=== PATIENT | female | born 1990 | race Caucasian/White ===

== ENCOUNTER → 2016-07-18 | Outpatient (CLI) | payer OTHER ==
--- NOTE | 2016-07-19 02:57 | REP ---
Clinical: Anatomical evaluation. Comparison: 06/17/2016 . Findings: Examination demonstrates a single live intrauterine in cephalic presentation. motion is identified by technologist. Placenta is noted anteriorly and grade zero without evidence for placenta previa or abruption. Amniotic fluid volume is normal. Cervix measures 3.9 cm in length and appears closed. No evidence for nuchal cord. Gestational age by LMP 24 weeks 4 days with GREG 11/03/2016 . Gestational age by current measurements 25 weeks 0 days with GREG 10/31/2016 . FHR equals 138 beats per minute. Estimated weight 765 grams ( 57th percentile). Anatomical assessment demonstrates normal structures including cranium, choroid plexus, cavum, cerebellum/posterior fossa, facial features, lungs, four-chamber heart/ventricular outflow tracts, diaphragm, stomach, cord insertion/three-vessel cord, kidneys/bladder, spine, and extremities. Impression: Single live intrauterine in cephalic presentation demonstrating appropriate interval growth. Anatomical assessment is complete and normal. Signed by Shun Kidd MD 07/19/2016 02:49 A
== END | disposition home or self-care (01) ==
LOC: M RAD 13:49
PROVIDERS: ATTEND Obstetrics & Gynecology
DX: Z34.82 Encounter for supervision of other normal pregnancy, second trimester (principal); Z36 Encounter for antenatal screening of mother; Z3A.25 25 weeks gestation of pregnancy

== ENCOUNTER → 2016-09-08 | Outpatient (CLI) | payer OTHER ==
[2016-09-08 11:16] LABS: MEAN CORPUSCULAR HEMOGLOBIN 33.1 pg (27.0-33.0); MEAN CORPUSCULAR HGB CONC 35.8 g/dl (32.0-36.5); MEAN CORPUSCULAR VOLUME 92.4 fl (80.0-96.0); RED CELL DISTRIBUTION WIDTH 13.3 % (11.5-14.5)
[2016-09-09 15:14] LABS: WHITE BLOOD COUNT 20.3 K/mm3 (4.0-10.0)
== END ==
LOC: M LAB 09:50
PROVIDERS: ATTEND Obstetrics & Gynecology
DX: Z34.82 Encounter for supervision of other normal pregnancy, second trimester (principal); Z36 Encounter for antenatal screening of mother; Z3A.00 Weeks of gestation of pregnancy not specified

== ENCOUNTER → 2016-09-22 | Outpatient (REF) | payer OTHER | LOC: M LAB REF 13:09 | PROVIDERS: ATTEND Obstetrics & Gynecology | DX: Z34.83 Encounter for supervision of other normal pregnancy, third trimester (principal); Z36 Encounter for antenatal screening of mother; Z3A.00 Weeks of gestation of pregnancy not specified ==

== ENCOUNTER 2016-10-27 23:01 | Inpatient (IN) | payer OTHER ==
[2016-10-27] MEDS ORDERED: OXYTOCIN DRIP 30 UNITS in APPROPRIATE DILUENT 1 EA IV SCH (23:45)
[2016-10-27] MEDS ORDERED: LR 1,000 ML IV SCH (23:45)
[2016-10-28] VITALS (38 sets, daily range): BP systolic 91–134; BP diastolic 50–95
--- NOTE | 2016-10-28 00:11 | HPEPDOC ---
Obstetrical History & Physical General Date of Admission October 27, 2016 at 23:35 Primary Care Physician: KATIE CHOE CNM History of Present Illness Rebeca is a 26-year-old female who is a at 39 weeks gestation with an GREG of 11/03/2016 based off of her first trimester ultrasound. She initiated care in her first trimester at [facility]. Her has been uncomplicated. She does have a history of preeclampsia with her first with eclampsia postdelivery and also history of a delivery at 32 weeks gestation. The patient was offered Shona injections weekly due to her history of delivery but patient declined. She presents to labor and delivery tonight with complaints of leaking of fluid which occurred at 10 PM. She reports the fluid is clear. Denies vaginal bleeding and reports active movement. Chief Complaint: Rupture of membranes Information Provided By: Patient Age: 26 : 4 Term: 2 Pre-term: 1 Abortions: 0 Livin Care Care: Good Care Number of Visits: 10 Dating Final EDC: November 03, 2016 Final EDC by: LMP EGA at Admission: 39.0 Antepartum Course Height (inches): 61 Pre- weight (lbs.): 112 Admission Weight (lbs.): 124 Change in Weight (lbs.): 12 Past Medical History Past Obstetrical History #1: Past Obstetrical History: Multigravida Type of Delivery: Spontaneous Vaginal Del. (June 2014 at 40 weeks gestation) Sex of : Male (wing 7 pounds) Complications: Yes (preeclampsia followed by eclampsia after delivery) Past Obstetrical History #2: Gestation: 32 Type of Delivery: Spontaneous Vaginal Del. Sex of : Male (weighing 5 lbs. 2 oz.) Complications: Yes ( delivery) Past Obstetrical History #3: Gestation: 40 Type of Delivery: Spontaneous Vaginal Del. 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 Surgical History: Gallbladder, Hernia repair Family History Significant Family History: Asthma, Cancer (colon), Heart disease, Hypertension , Other (IBS) Social History Marital Status: Single Family situation: Spouse/partner home Psychosocial History: No pertinent psych hx * Smoker: current smoker Alcohol: Denies Drugs: denies Abuse Violence Screening Have you been hit/kicked/slapp: No Have you been sexually assault: No Imunizations Tdap status: current Allergies Coded Allergies: Chlorpheniramine (Verified Allergy, Intermediate, HIVES, 09/24/12) Codeine (Verified Allergy, Intermediate, HIVES, 09/24/12) Dextromethorphan (Verified Allergy, Unknown, HIVES, 09/24/12) Guaifenesin (Verified Allergy, Unknown, HIVES, 09/24/12) Physical Examination Physical Examination GENERAL: Alert and oriented times three. BREAST: . ABDOMEN: Gravid and non-tender to touch. FETUS: Is vertex (VTX) by sterile vaginal examination (SVE), fetus is vertex ( VTX) by Herber. HEART RATE: Regular rate and rhythm. LUNGS: Clear to auscultation (CTA). EXTREMITIES: No edema. Other physical findings Patient is grossly ruptured. Moderate amount of clear fluid leaking from the vagina. Positive nitrazine. Laboratory Data 24H LABS Laboratory Tests 2 10/27/16 23:42: Serology Scanned Report Hepatitis B Testing Urine Culture: No Growth Pertinent Laboratoy Data Blood Type: A+ RBC Antibody Screen: Negative HIV: Negative Hepatitis B: Negative Rapid Plasma Reagin: Nonreactive Rubella: Immune Chlamydia/Gonorrhea: Negative Group B Streptococcus: Negative Quad Screen Test: Declined Glucose Tolerance Test: 111 Anatomy Ultrasound Ultrasound Date: Jul 18, 2016 Normal Anatomy: Yes Placenta Previa: No Vaginal Examination Dilation: 4 cm Effacement: 75% Station: -2 Cervical Consistency: Soft Cervical Position: Posterior Presentation: Cephalic presentation Position: Vertex (occiput) Assessment Heart Rate (FHR): 115 Variability: Moderate Accelerations: Positive Decelerations: None Tocometer Contractions: Yes Frequency: irregular Multi-drug resistant Organism: No history of MDRO Assessment/Plan Assessment IUP at 39 weeks gestation Spontaneous rupture at term, grossly ruptured Category 1 heart rate tracing Plan Admit to labor and delivery. Start IV per protocol. Labs per protocol. Out of bed as tolerated. Reviewed expectant management versus Pitocin augmentation with patient due to being ruptured. Reviewed risks/benefits of each. Patient desires to have Pitocin augmentation. She is considering an epidural. Anticipate cervical change and spontaneous vaginal delivery. KATIE CHOE CNM October 28, 2016 00:11
[2016-10-28 00:32] LABS: MEAN CORPUSCULAR HEMOGLOBIN 31.9 pg (27.0-33.0); MEAN CORPUSCULAR HGB CONC 35.4 g/dl (32.0-36.5); MEAN CORPUSCULAR VOLUME 89.9 fl (80.0-96.0); RED CELL DISTRIBUTION WIDTH 13.7 % (11.5-14.5); WHITE BLOOD COUNT 16.3 K/mm3 (4.0-10.0)
[2016-10-28] MEDS ORDERED: FENTANYL 2MCG/ML ROPIVACAINE 0.2% IN 0.9% NACL 200ML IVBAG As Ordered ONE (04:16)
[2016-10-28] MEDS ORDERED: EPIDURAL COMMENT XX SCH (04:52)
[2016-10-28] MEDS ORDERED: LACTATED RINGER'S 1000 ML IV PRN (04:52)
[2016-10-28] MEDS ORDERED: ePHEDrine SULFATE 25 MG/5 ML(5MG/ML) SYRINGE IV PRN (04:52)
[2016-10-28] MEDS ORDERED: ONDANSETRON 4MG/2ML VIAL (J2405) IV PRN (04:52)
[2016-10-28] MEDS ORDERED: diphenhydrAMINE INJ 50MG/ML VIAL (J1200) IV PRN (04:52)
[2016-10-28] MEDS ORDERED: FENTANYL/ROPIVACAINE/NACL BAG 200 ML EPIDURAL SCH (04:52)
[2016-10-28] MEDS ORDERED: REFRIGERATOR IV KEYS XX PRN (04:52)
[2016-10-28] MEDS ORDERED: NALOXONE INJ 0.4 MG/1 ML VIAL (J2310) IV PRN (04:52)
[2016-10-28] MEDS ORDERED: EPIDURAL/PCA KEYS XX PRN (04:52)
--- NOTE | 2016-10-28 07:26 | IPNPDOC ---
Date Seen The patient was seen on 10/28/16 at 0700. Progress Note SUBJECTIVE: Patient reports she is comfortable after receiving epidural. No complaints. OBJECTIVE: FHR: 120, moderate variability, positive accelerations, no decelerations. Contractions every 2 to 3 minutes. Pitocin at 10 mu/min. VITAL SIGNS: Please see below. ASSESSMENT: IUP @ 39.1 weeks gestation, SROM, Category I FHR tracing PLAN: Continue Pitocin augmentation. Anticipate cervical change and . VS, I&O, 24H, Fishbone Vital Signs/I&O Vital Signs Date Time Temp Pulse Resp B/P (MAP) Pulse Ox O2 Delivery O2 Flow Rate FiO2 10/28/16 04:48 74 117/89 (98) 10/28/16 04:47 99.0 I&O- Last 24 Hours up to 6 AM 10/28/16 05:59 Intake Total 1000 ml Balance 1000 ml Laboratory Data 24H LABS Laboratory Tests 2 10/27/16 23:42: Serology Scanned Report Hepatitis B Testing 10/28/16 00:24: CBC/BMP Laboratory Tests 10/28/16 00:24 Red Blood Count 4.05, Mean Corpuscular Volume 89.9, Mean Corpuscular Hemoglobin 31.9, Mean Corpuscular Hemoglobin Concent 35.4, Red Cell Distribution Width 13.7 KATIE CHOE CNM October 28, 2016 07:26
[2016-10-28] MEDS ORDERED: OXYTOCIN DRIP 30 UNITS in APPROPRIATE DILUENT 1 EA IV SCH (14:17)
[2016-10-28] MEDS ORDERED: ACETAMINOPHEN 500 MG TAB PO PRN (14:30)
[2016-10-28] MEDS ORDERED: DIBUCAINE 1% OINTMENT 30GM TOP PRN (14:30)
[2016-10-28] MEDS ORDERED: METHYLERGONOVINE MALEATE 0.2 MG TAB PO PRN (14:30)
[2016-10-28] MEDS ORDERED: DOCUSATE SODIUM 100 MG CAP PO PRN (14:30)
[2016-10-28] MEDS ORDERED: RHOGAM 300 MCG (1500 IU) INJ (J2790) IM SCH (14:30)
[2016-10-28] MEDS ORDERED: MEASLES,MUMPS,RUBELLA VACCINE INJ (MMR-II) (90707) SC SCH (14:30)
--- NOTE | 2016-10-28 14:43 | DNPDOC ---
[facility] Delivery Note Delivery Note Rebeca is a 26-year-old female now G 4 P 3104 at 39.1 weeks' gestation who presented to labor and delivery with spontaneous rupture of membranes. She received Pitocin augmentation and an epidural for pain management. She progressed to fully dilated at 1238. Patient pushed to a spontaneous vaginal delivery at 1251 to a living male in the OA position with restitution to R OT. Nuchal cord 3 tight. Shoulders delivered with ease and the corpus immediately followed. Baby placed on maternal abdomen active and crying with stimulation. Cord clamped 2 and cut by father of the baby after pulsation ceased. Spontaneous delivery of intact placenta with a three-vessel cord by Klein mechanism at 1256. Uterine hemostasis achieved by rapid infusion of IV Pitocin and uterine fundal massage. Perineum and vagina inspected and found to intact. EBL 400. Infant's 8/9. Weight 7 lbs. 1 oz, 3196 g. Mom is bottle feeding . Both are stable.. KATIE CHOE CNM October 28, 2016 14:43
[2016-10-28] MEDS: IBUPROFEN 800 MG TAB PO PRN (18:49)
[2016-10-29 05:54] VITALS: BP 118/65
[2016-10-29] MEDS: IBUPROFEN 800 MG TAB PO PRN ×2 (06:53→17:16)
[2016-10-29] MEDS ORDERED: PNEUMOCOCCAL VACCINE 0.5ML SYRINGE(90732) PNEUMOVAX 23 IM SCH (09:00)
[2016-10-29] MEDS ORDERED: PRENATAL VITAMIN TAB PO SCH (09:00)
[2016-10-29] MEDS ORDERED: MOTR200T44 PO (16:31)
[2016-10-29] MEDS ORDERED: TYLE500T78 PO (16:31)
[2016-10-29] MEDS ORDERED: COLA100C3 PO (16:33)
[2016-10-29 17:40] VITALS: BP 137/94
[2016-10-29 18:00] VITALS: BP 123/87
== END 2016-10-29 20:59 | disposition home or self-care (01) | DRG 560 ==
LOC: M LDO 23:01 → M LDI 23:35 → M OBS 10-28 15:20
PROVIDERS: ADMIT Advanced Practice Midwife; ATTEND Advanced Practice Midwife
PROC: 10E0XZZ Delivery of Products of Conception, External Approach (ICD-10-PCS; principal; 2016-10-28)
DX: O69.2XX0 Labor and delivery complicated by other cord entanglement, with compression, not applicable or unspecified (principal); F17.210 Nicotine dependence, cigarettes, uncomplicated; Z37.0 Single live birth; Z3A.39 39 weeks gestation of pregnancy; O99.334 Smoking (tobacco) complicating childbirth

== ENCOUNTER 2016-11-30 09:30 | Emergency (ER) | payer OTHER ==
[~2016-11-30] VITALS: Ht 152.4 cm; Wt 53.1 kg
[~2016-11-30 09:30] MED LIST: COLA100C3 PO; MOTR200T44 PO; TYLE500T78 PO
--- NOTE | 2016-11-30 11:02 | REP ---
Left shoulder series: Three views. History: Left rib pain and shoulder pain. Findings: The glenohumeral and acromioclavicular joints are normally aligned on the left side. No shoulder fracture is seen. No subluxation is seen. Incidental note is made of transverse fracture of the posterolateral segments of the left 6th and 7th ribs. Impression: Left 6th and 7th posterolateral rib fractures. No shoulder fracture or subluxation seen. Signed by Timur Hinojosa MD 11/30/2016 01:34 P
[2016-11-30] MEDS ORDERED: HYDR-3713 PO (11:05)
--- NOTE | 2016-11-30 11:18 | REP ---
Left rib series: Four views including PA chest. History: Left rib pain. Comparison chest x-ray May 17, 2014. Findings: The lungs are exposed at a somewhat lesser inspiratory level. They are clear however. There is no evidence of pneumothorax or hydrothorax. Mediastinum is not widened. Heart size is normal. Multiple views of the left rib cage demonstrate left posterolateral rib fractures involving the 6th and 7th left ribs. The left posterolateral 7th rib fracture is mildly displaced. The left 6th rib fracture is not displaced. Impression: Left posterolateral 6th and 7th rib fractures. No complication is identified. Signed by Timur Hinojosa MD 11/30/2016 01:34 P
[2016-11-30 11:48] VITALS: BP 128/86
== END 2016-11-30 11:47 | disposition home or self-care (01) ==
LOC: M ED 10:19
DX: S22.42XA Multiple fractures of ribs, left side, initial encounter for closed fracture (principal); S40.012A Contusion of left shoulder, initial encounter; W22.09XA Striking against other stationary object, initial encounter; Y92.009 Unspecified place in unspecified non-institutional (private) residence as the place of occurrence of the external cause; Y93.89 Activity, other specified; Y99.8 Other external cause status; F17.210 Nicotine dependence, cigarettes, uncomplicated; Z88.8 Allergy status to other drugs, medicaments and biological substances; Z88.5 Allergy status to narcotic agent

== ENCOUNTER → 2017-05-21 | Outpatient (REF) | payer OTHER ==
[~2017-05-21] MED LIST changes: -COLA100C3 PO; +COLA100C5 PO; +HYDR-3713 PO
== END ==
LOC: M LAB REF 10:49
PROVIDERS: ATTEND Physician Assistant Medical
DX: J11.1 Influenza due to unidentified influenza virus with other respiratory manifestations (principal)

== ENCOUNTER → 2017-12-08 | Outpatient (CLI) | payer OTHER | LOC: M RAD 13:21 | DX: S69.92XA Unspecified injury of left wrist, hand and finger(s), initial encounter (principal); X58.XXXA Exposure to other specified factors, initial encounter; Y92.9 Unspecified place or not applicable | CPT/HCPCS: 73110 ==

== ENCOUNTER 2017-12-30 16:08 | Emergency (ER) | payer OTHER ==
[2017-12-30] MEDS: NORCO, ANEXSIA 5/325MG TABLET (HYDROcodone/ACETAMINOPHEN) PO (17:30)
== END 2017-12-30 17:47 | disposition home or self-care (01) ==
LOC: M ED 16:08
DX: S93.492A Sprain of other ligament of left ankle, initial encounter (principal); W18.42XA Slipping, tripping and stumbling without falling due to stepping into hole or opening, initial encounter; Y92.096 Garden or yard of other non-institutional residence as the place of occurrence of the external cause; F17.200 Nicotine dependence, unspecified, uncomplicated
CPT/HCPCS: 73610

== ENCOUNTER → 2018-10-01 | Outpatient (REF) | payer OTHER ==
[2018-10-01 13:34] LABS: APPEARANCE, URINE HAZY (CLEAR); BACTERIA, URINE AUTO 1+ (NEGATIVE); BILIRUBIN, URINE AUTO NEGATIVE (NEGATIVE); BLOOD, URINE BLOOD 1+ (NEGATIVE); COLOR, URINE YELLOW (YELLOW); GLUCOSE, URINE (UA) AUTO NEGATIVE (NEGATIVE); KETONE, URINE AUTO NEGATIVE (NEGATIVE); LEUKOCYTE ESTERASE, URINE AUTO 2+ (NEGATIVE); MUCUS, URINE SMALL (NEGATIVE); NITRITE, URINE AUTO NEGATIVE (NEGATIVE); PROTEIN, URINE AUTO NEGATIVE (NEGATIVE); RBC, URINE AUTO 4 /HPF (0-3); SPECIFIC GRAVITY URINE AUTO 1.019 (1.002-1.035); SQUAMOUS EPITHELIAL CELL UR AU 17 /HPF (0-6); UROBILINOGEN, URINE AUTO 0.2 mg/dL (0.0-2.0); WBC, URINE AUTO 5 /HPF (0-3)
== END ==
LOC: M LAB REF 13:02
PROVIDERS: ATTEND Physician Assistant Medical
DX: N39.0 Urinary tract infection, site not specified (principal)

== ENCOUNTER 2018-12-30 20:03 | Emergency (ER) | payer OTHER ==
[~2018-12-30] VITALS: Ht 154.9 cm; Wt 50.9 kg
[2018-12-30 20:04] VITALS: BP 142/91
--- NOTE | 2018-12-31 04:02 | REP ---
Clinical: Trauma/injury . Technique: AP, lateral, bilateral oblique views right ankle . Findings: No acute fracture or dislocation. Skeletal structures and joint spaces are intact and normal. Ankle mortise appears stable. No subcutaneous emphysema or radiodense foreign body. Impression: Normal right ankle radiograph series. Electronically Signed by Shun Kidd MD 12/31/2018 03:54 A
--- NOTE | 2018-12-31 04:03 | REP ---
Clinical: Trauma. Technique: AP, lateral, bilateral oblique views right foot . Findings: The osseous structures and joint spaces are intact and normal. There is no evidence for acute fracture or dislocation. Surrounding soft tissues are unremarkable. No subcutaneous emphysema or radiodense foreign body. Impression: Normal Right foot series . No acute fracture or dislocation. Electronically Signed by Shun Kidd MD 12/31/2018 03:54 A
== END 2018-12-30 20:55 | disposition home or self-care (01) ==
LOC: M ED 20:03
DX: S93.601A Unspecified sprain of right foot, initial encounter (principal); X58.XXXA Exposure to other specified factors, initial encounter; Y92.099 Unspecified place in other non-institutional residence as the place of occurrence of the external cause; Y93.B9 Activity, other involving muscle strengthening exercises; Y99.9 Unspecified external cause status; R56.9 Unspecified convulsions; Z72.0 Tobacco use; Z88.5 Allergy status to narcotic agent; Z88.8 Allergy status to other drugs, medicaments and biological substances

== ENCOUNTER 2019-02-09 18:15 | Emergency (ER) | payer OTHER ==
[~2019-02-09] VITALS: Ht 154.9 cm; Wt 61.1 kg
[2019-02-09] MEDS ORDERED: METHOCARBAMOL 1,000 MG/10 ML VIAL (J2800) IV ONE (19:45)
[2019-02-09] MEDS ORDERED: KETOROLAC 30 MG/ML VIAL (J1885) IV ONE (19:45)
[2019-02-09] MEDS ORDERED: NAPR-837 PO (21:20)
[2019-02-09] MEDS ORDERED: ROBA750T4 PO (21:20)
[2019-02-09 21:37] VITALS: BP 109/72
== END 2019-02-09 21:39 | disposition home or self-care (01) ==
LOC: M ED 18:15
DX: M54.5 Low back pain (principal); Z72.0 Tobacco use; Z88.5 Allergy status to narcotic agent; Z88.8 Allergy status to other drugs, medicaments and biological substances
CPT/HCPCS: 96374; 96375; 99284; J1885; J2800

== ENCOUNTER → 2019-02-26 | Outpatient (REF) | payer OTHER ==
[~2019-02-26] MED LIST changes: +NAPR-837 PO; +ROBA750T4 PO
== END ==
LOC: M SFHCPLAZ 17:44
PROVIDERS: ATTEND Nurse Practitioner Family
DX: R35.0 Frequency of micturition (principal); N30.00 Acute cystitis without hematuria

== ENCOUNTER 2019-09-23 11:28 | Emergency (ER) | payer OTHER ==
[~2019-09-23] VITALS: Ht 154.9 cm; Wt 57.7 kg
[2019-09-23 11:28] VITALS: BP 130/89
[2019-09-23] MEDS ORDERED: TYLENOL (11:34)
--- NOTE | 2019-09-23 13:06 | REP ---
RIGHT FOOT, FOUR VIEWS: There is no evidence of an acute fracture, dislocation or intrinsic bone disease. IMPRESSION: No fracture or dislocation. Electronically Signed by Syed Mcfarland MD 09/23/2019 03:19 P
== END 2019-09-23 13:24 | disposition home or self-care (01) ==
LOC: M ED 11:28
DX: S93.601A Unspecified sprain of right foot, initial encounter (principal); W19.XXXA Unspecified fall, initial encounter; Y92.9 Unspecified place or not applicable; Y93.9 Activity, unspecified; Y99.9 Unspecified external cause status; R56.9 Unspecified convulsions; M54.9 Dorsalgia, unspecified; F17.200 Nicotine dependence, unspecified, uncomplicated; Z88.5 Allergy status to narcotic agent; Z88.8 Allergy status to other drugs, medicaments and biological substances

== ENCOUNTER 2020-06-20 22:07 | Emergency (ER) | payer OTHER, MEDICAID ==
[~2020-06-20] VITALS: Ht 154.9 cm; Wt 50.0 kg
[2020-06-20 22:07] VITALS: BP 116/73
[~2020-06-20 22:07] MED LIST changes: +TYLENOL
== END 2020-06-20 22:59 | disposition left against medical advice (07) ==
LOC: M ED 22:07
DX: Z53.29 Procedure and treatment not carried out because of patient's decision for other reasons (principal)

== ENCOUNTER → 2021-02-18 | Outpatient (REF) | payer OTHER, MEDICAID ==
[2021-02-18 18:20] LABS: HEMATOCRIT 43.6 % (36.0-47.0); HEMOGLOBIN 14.8 g/dl (12.0-15.5); MEAN CORPUSCULAR HGB CONC 33.9 g/dl (32.0-36.5); MEAN CORPUSCULAR VOLUME 94.2 fl (80.0-96.0); RED BLOOD COUNT 4.63 10^6/uL (4.00-5.40)
[2021-02-18 19:38] LABS: HCG, SERUM QUANTITATIVE 1214 MIU/ML; HEPATITIS B SURFACE ANTIGEN NEGATIVE (NEGATIVE); HEPATITIS C VIRUS ABY INDEX < 0.0 INDEX (<0.8); HIV 1&2 SCREEN CENTAUR NEGATIVE (NEGATIVE)
== END ==
LOC: M LAB REF 17:03
PROVIDERS: ATTEND Obstetrics & Gynecology
DX: O36.80X0 Pregnancy with inconclusive fetal viability, not applicable or unspecified (principal); Z32.01 Encounter for pregnancy test, result positive

== ENCOUNTER → 2021-03-23 | Outpatient (REF) | payer OTHER, MEDICAID ==
[2021-03-23 11:52] LABS: HEMATOCRIT 40.7 % (36.0-47.0); HEMOGLOBIN 14.2 g/dl (12.0-15.5); MEAN CORPUSCULAR HEMOGLOBIN 31.1 pg (27.0-33.0); MEAN CORPUSCULAR HGB CONC 34.9 g/dl (32.0-36.5); MEAN CORPUSCULAR VOLUME 89.1 fl (80.0-96.0); PLATELET COUNT, AUTOMATED 162 10^3/uL (150-450); RED BLOOD COUNT 4.57 10^6/uL (4.00-5.40); WHITE BLOOD COUNT 9.9 10^3/uL (4.0-10.0)
== END ==
LOC: M LAB REF 11:21
PROVIDERS: ATTEND Obstetrics & Gynecology
DX: Z34.01 Encounter for supervision of normal first pregnancy, first trimester (principal)

== ENCOUNTER → 2021-05-25 | Outpatient (REF) | payer OTHER ==
[~2021-05-25] MED LIST changes: +ACET-907 PO; +CEPH500C PO; +CIPR-250 PO; +MACR100C43 PO; +PERCOCET PO; +PRENTAB53 PO; +ZOFR4TAB16 PO
== END ==
LOC: M LAB REF 16:34
PROVIDERS: ATTEND Advanced Practice Midwife
DX: R30.0 Dysuria (principal)

== ENCOUNTER 2021-06-12 13:33 | Outpatient (CLI) | payer OTHER ==
[~2021-06-12] VITALS: Ht 154.9 cm; Wt 56.8 kg
[~2021-06-12 13:33] MED LIST changes: -ACET-907 PO; -CEPH500C PO; -CIPR-250 PO; -MACR100C43 PO; -PERCOCET PO; -PRENTAB53 PO; -ZOFR4TAB16 PO
[2021-06-12] MEDS ORDERED: LACTATED RINGER'S 1000 ML IV STA (13:42)
[2021-06-12 14:02] VITALS: BP 107/67
[2021-06-12] MEDS ORDERED: ACETAMINOPHEN 500 MG TAB PO PRN (14:10)
[2021-06-12] MEDS ORDERED: ONDANSETRON 4MG/2ML VIAL IV SCH (14:30)
[2021-06-12 14:43] LABS: HEMATOCRIT 37.1 % (36.0-47.0); HEMOGLOBIN 13.4 g/dl (12.0-15.5); MEAN CORPUSCULAR HEMOGLOBIN 32.1 pg (27.0-33.0); MEAN CORPUSCULAR HGB CONC 36.1 g/dl (32.0-36.5); PLATELET COUNT, AUTOMATED 224 10^3/uL (150-450); RED BLOOD COUNT 4.17 10^6/uL (4.00-5.40); WHITE BLOOD COUNT 20.4 10^3/uL (4.0-10.0)
[2021-06-12] MEDS ORDERED: cefTRIAXone SOD 2 GM in D5W MINI-BAG PLUS 50 ML IV ONE (15:00)
[2021-06-12 15:07] LABS: ALBUMIN 2.8 GM/DL (3.2-5.2); ALT/SGPT 92 U/L (12-78); BILIRUBIN,TOTAL 0.8 MG/DL (0.2-1.0); BLOOD UREA NITROGEN 3 MG/DL (7-18); CALCIUM LEVEL 9.2 MG/DL (8.5-10.1); CARBON DIOXIDE LEVEL 26 MEQ/L (21-32); CHLORIDE LEVEL 97 MEQ/L (98-107); CREATININE FOR GFR 0.38 MG/DL (0.55-1.30); GLOMERULAR FILTRATION RATE > 60.0 (>60); GLUCOSE, FASTING 90 MG/DL (70-100); SODIUM LEVEL 134 MEQ/L (136-145); TOTAL PROTEIN 7.4 GM/DL (6.4-8.2)
[2021-06-12] MEDS ORDERED: ACET-907 PO (15:17)
[2021-06-12] MEDS ORDERED: PRENTAB53 PO (15:17)
[2021-06-12] MEDS ORDERED: CIPR-250 PO (15:17)
[2021-06-12] MEDS ORDERED: ZOFR4TAB16 PO (15:17)
[2021-06-12] MEDS ORDERED: HOME MED LIST COMPLETE! XX SCH (15:20)
[2021-06-12] MEDS: MORPHINE 4 MG/ML 1ML VIAL/SYRINGE (J2270) IV PRN ×3 (15:41→21:53)
[2021-06-12 15:46] LABS: APPEARANCE, URINE CLOUDY (CLEAR); BACTERIA, URINE AUTO 1+ (NEGATIVE); BILIRUBIN, URINE AUTO 1+ (NEGATIVE); BLOOD, URINE BLOOD 1+ (NEGATIVE); COLOR, URINE AMBER (YELLOW); GLUCOSE, URINE (UA) AUTO NEGATIVE (NEGATIVE); KETONE, URINE AUTO 1+ mg/dL (NEGATIVE); LEUKOCYTE ESTERASE, URINE AUTO 3+ (NEGATIVE); MUCUS, URINE SMALL (NEGATIVE); NITRITE, URINE AUTO POSITIVE (NEGATIVE); PROTEIN, URINE AUTO 2+ mg/dL (NEGATIVE); RBC, URINE AUTO 5 /HPF (0-3); SPECIFIC GRAVITY URINE AUTO 1.013 (1.002-1.035); SQUAMOUS EPITHELIAL CELL UR AU 1 /HPF (0-6); WBC, URINE AUTO TNTC /HPF (0-3)
--- NOTE | 2021-06-12 15:47 | REP ---
INDICATION: right flank pain COMPARISON: None TECHNIQUE: Real time newman scale ultrasound examination using curved array transducer. FINDINGS: Right kidney measures 10.9 x 7.0 x 5.0 cm and demonstrates moderate grade 3 hydroureteronephrosis without obvious nephrolithiasis, cystic or renal mass lesion. Left kidney measures 11.7 x 5.0 x 4.1 cm without hydronephrosis, nephrolithiasis, cystic or renal mass lesion. Bladder is collapsed. IMPRESSION: Moderate grade 3 right hydronephrosis/proximal hydroureter. <Electronically signed by Shun Kidd > 06/12/21 [id number]
[2021-06-12 16:32] VITALS: BP 112/61
[2021-06-12] MEDS: LR 1,000 ML IV SCH ×2 (17:50→22:06)
[2021-06-12 19:36] VITALS: BP 99/63
[2021-06-12 19:40] VITALS: BP 102/58
--- NOTE | 2021-06-12 19:51 | IPNPDOC ---
Obstetrical Progress Note Date of Service Jun 12, 2021 Subjective 30yo at 21+2 weeks gestation. Presents with 3-day history of right flank pain and fever at home, 101.3 Fahrenheit. Recently treated for UTI, but did not complete course of antibiotic. She is having difficulty tolerating p.o. Symptoms have become worse over the last 24-hours. She has only treated herself with Tylenol for pain. Review of systems notable for intermittent xochitl sea vomiting. She denies any chest pain or shortness of breath. She denies any uterine contractions, loss of fluid, vaginal bleeding. She feels movement. PMH: scoliosis SH: lap len, hernia repair OB: x 4; 1 IOL for pre-e Sochx: smoker course: Receives care at [facility] Normotensive afebrile normal heart rate General: Alert and oriented but appears uncomfortable Heart: Regular rate and rhythm Lungs: Clear to auscultation, nonlabored breathing. Extremities: Nontender nonedematous FHR: 150 to 160 bpm, moderate variability [place]: No contractions A/P: 30-year-old at 21+2 weeks gestation with suspected right-sided pyelonephritis, possible hydronephrosis -Right renal ultrasound -IV fluid hydration -IV antibiotics, Rocephin 2 g IV repeat in 24-hours -IV morphine for pain control; transition to PO over the course of her stay -IV antiemetics for nausea control -OBS status for now. Angelo Garrison DO Objective Vital Signs Date Time Temp Pulse Resp B/P (MAP) Pulse Ox O2 Delivery O2 Flow Rate FiO2 06/12/21 18:55 16 06/12/21 16:32 98.7 91 112/61 (78) 98 Room Air ALLISON GARRISON DO Jun 12, 2021 19:51
[2021-06-12] MEDS: ONDANSETRON 4MG/2ML VIAL IV PRN (21:51)
[2021-06-12 23:42] VITALS: BP 109/56
[2021-06-13] MEDS: MORPHINE 4 MG/ML 1ML VIAL/SYRINGE (J2270) IV PRN ×2 (01:37→04:36)
[2021-06-13] MEDS: LR 1,000 ML IV SCH ×2 (06:00→09:45)
[2021-06-13] MEDS: ONDANSETRON 4MG/2ML VIAL IV PRN (07:32)
[2021-06-13] MEDS: PERCOCET 5MG/325MG TAB PO PRN ×2 (08:38→17:07)
[2021-06-13 08:50] VITALS: BP 91/52
[2021-06-13 08:51] VITALS: BP 91/53
[2021-06-13 09:48] VITALS: BP 106/56
[2021-06-13 12:16] VITALS: BP 94/51
[2021-06-13] MEDS ORDERED: MACR100C43 PO (13:35)
[2021-06-13] MEDS ORDERED: PERCOCET PO (13:35)
--- NOTE | 2021-06-13 13:35 | IPNPDOC ---
Obstetrical Progress Note Date of Service Jun 13, 2021 Subjective Patient feeling improved today after receiving IV hydration, pain control, and IV antibiotic. She is now eating and tolerating PO without n/v. Labs and imaging yesterday c/w pyelonephritis. No e/o nephrolithiasis. No VB/LOF/uctx. +FM. FHR doptones have been consistently wnl. Recently switched IV pain control to PO Percocet. Vital Signs Date Time Temp Pulse Resp B/P (MAP) Pulse Ox O2 Delivery O2 Flow Rate FiO2 06/13/21 12:16 96.4 62 20 94/51 (65) 97 Room Air 06/13/21 09:48 75 20 106/56 (73) 06/13/21 09:20 16 06/13/21 08:51 65 91/53 (66) 06/13/21 08:50 98.0 64 16 91/52 (65) 98 Room Air 06/13/21 08:38 16 06/13/21 04:47 18 06/13/21 04:36 18 06/13/21 01:49 18 06/13/21 01:37 17 06/12/21 23:42 98.0 84 17 109/56 (73) 06/12/21 22:03 17 06/12/21 21:53 17 06/12/21 19:40 85 102/58 (73) 06/12/21 19:36 97.0 88 17 99/63 (75) 06/12/21 19:05 17 06/12/21 18:55 16 06/12/21 16:32 98.7 91 20 112/61 (78) 98 Room Air 06/12/21 16:05 20 06/12/21 15:41 20 06/12/21 14:04 97.5 102 20 97 Room Air 06/12/21 14:02 96 107/67 (80) 06/12/21 13:59 99 97 Room Air 06/12/21 13:54 102 95 Room Air Intake & Output 06/13/21 06:00 Intake Total 1735 ml Output Total 750 ml Balance 985 ml Laboratory Tests 06/12/21 14:28: White Blood Count 20.4H, Red Blood Count 4.17, Hemoglobin 13.4, Hematocrit 37.1, Mean Corpuscular Volume 89.0, Mean Corpuscular Hemoglobin 32.1, Mean Corpuscular Hemoglobin Concent 36.1, Red Cell Distribution Width 13.3, Platelet Count 224, Nucleated Red Blood Cells % (auto) 0.0, Sodium Level 134L, Potassium Level 3.0L, Chloride Level 97L, Carbon Dioxide Level 26, Anion Gap 11, Blood Urea Nitrogen 3L, Creatinine 0.38L, Glomerular Filtration Rate > 60.0, Fasting Glucose 90, Calcium Level 9.2, Total Bilirubin 0.8, Aspartate Amino Transf (AST/SGOT) 47H, Alanine Aminotransferase (ALT/SGPT) 92H, Alkaline Phosphatase 354H, Total Protein 7.4, Albumin 2.8L, Albumin/Globulin Ratio 0.6L 06/12/21 15:29: Urine Color CHANEL, Urine Appearance CLOUDYH, Urine pH 6.0, Urine Specific [place] 1.013, Urine Protein 2+H, Urine Glucose (Auto)(UA) NEGATIVE, Urine Ketones (Auto) 1+H, Urine Blood 1+H, Urine Nitrite POSITIVE, Urine Bilirubin 1+H, Urine Urobilinogen 4.0H, Urine Leukocyte Esterase (Auto) 3+H, Urine WBC (Auto) TNTCH, Urine RBC (Auto) 5H, Urine Hyaline Casts (Auto) 0, Urine Bacteria (Auto) 1+H, Urine Squamous Epithelial Cells 1, Urine Mucus (Auto) SMALL, Urine Sperm (Auto) 06/12/21 16:04: Coronavirus (COVID-19)(PCR) NEGATIVE Current Medications Medications (Trade) Dose Ordered Sig/Cece Route PRN Reason Start Time Stop Time Status Last Admin Dose Admin Lactated Ringer's 1,000 ml @ 125 mls/hr Q8H IV 06/12/21 14:00 06/13/21 09:45 125 MLS/HR Morphine Sulfate (Morphine Sulfate Inj) 4 mg Q2HP PRN IV SEVERE PAIN (PS 8-10) 06/12/21 14:10 06/13/21 04:36 4 MG Ondansetron HCl (ZOFRAN INJection) 4 mg Q4HP PRN IV NAUSEA OR VOMITING 06/12/21 19:10 06/13/21 07:32 4 MG Oxycodone/ Acetaminophen (Percocet 5mg/ 325mg Tablet) 1 tab Q4HP PRN PO MODERATE PAIN (PS 5-7) 06/13/21 07:50 06/13/21 08:38 1 TAB Objective Vital Signs Date Time Temp Pulse Resp B/P (MAP) Pulse Ox O2 Delivery O2 Flow Rate FiO2 06/13/21 12:16 96.4 62 20 94/51 (65) 97 Room Air Assessment and Plan Additional Comments Right pyelonephritis, clinically improving. Mod right hydronephrosis, no obstruction / nephrolithiasis. Continue IV abx this afternoon, then switch to PO abx tomorrow. Follow up closely with Dr. Ridley. Limited Rx for Percocet given as well. Routine fever, infectious, pain, and bleeding precautions reviewed in addition to routine second trimester precautions. ALLISON TIAN DO Jun 13, 2021 13:34
[2021-06-13 13:50] LABS: HEMATOCRIT 31.4 % (36.0-47.0); MEAN CORPUSCULAR HEMOGLOBIN 32.4 pg (27.0-33.0); MEAN CORPUSCULAR HGB CONC 35.7 g/dl (32.0-36.5); MEAN CORPUSCULAR VOLUME 90.8 fl (80.0-96.0); PLATELET COUNT, AUTOMATED 221 10^3/uL (150-450); RED BLOOD COUNT 3.46 10^6/uL (4.00-5.40); WHITE BLOOD COUNT 10.2 10^3/uL (4.0-10.0)
[2021-06-13 13:51] LABS: HEMOGLOBIN 11.2 g/dl (12.0-15.5)
[2021-06-13 14:31] LABS: ALBUMIN 2.2 GM/DL (3.2-5.2); ALT/SGPT 57 U/L (12-78); BILIRUBIN,TOTAL 0.5 MG/DL (0.2-1.0); BLOOD UREA NITROGEN 2 MG/DL (7-18); CALCIUM LEVEL 8.3 MG/DL (8.5-10.1); CARBON DIOXIDE LEVEL 29 MEQ/L (21-32); CHLORIDE LEVEL 103 MEQ/L (98-107); CREATININE FOR GFR 0.27 MG/DL (0.55-1.30); GLOMERULAR FILTRATION RATE > 60.0 (>60); GLUCOSE, FASTING 96 MG/DL (70-100); POTASSIUM SERUM 3.3 MEQ/L (3.5-5.1); SODIUM LEVEL 139 MEQ/L (136-145); TOTAL PROTEIN 5.9 GM/DL (6.4-8.2)
[2021-06-13] MEDS ORDERED: cefTRIAXone SOD 2 GM in D5W MINI-BAG PLUS 50 ML IV ONE (16:00)
[2021-06-13 16:37] VITALS: BP 94/62
[2021-06-13 17:09] VITALS: BP 106/63
== END 2021-06-13 18:53 ==
LOC: M LDO 13:33
PROVIDERS: ATTEND Obstetrics & Gynecology
DX: O26.892 Other specified pregnancy related conditions, second trimester (principal); M54.50 Low back pain, unspecified; R50.9 Fever, unspecified; O23.02 Infections of kidney in pregnancy, second trimester; Z3A.21 21 weeks gestation of pregnancy
CPT/HCPCS: 36415; 59025; 76775; 80053; 81001; 85027; 87088; 87186; J0696; J2270; J2405; U0002

== ENCOUNTER 2021-07-17 16:55 | Outpatient (CLI) | payer OTHER ==
[~2021-07-17] VITALS: Ht 154.9 cm; Wt 142.0 kg
[2021-07-17] MEDS: LR 1,000 ML IV SCH (01:00)
[~2021-07-17 16:55] MED LIST changes: +ACET-907 PO; +CIPR-250 PO; +MACR100C43 PO; +PERCOCET PO; +PRENTAB53 PO; +ZOFR4TAB16 PO
[2021-07-17] MEDS ORDERED: LR 1,000 ML IV ONE (17:00)
[2021-07-17 17:24] VITALS: BP 121/69
[2021-07-17] MEDS ORDERED: HOME MED LIST COMPLETE! XX SCH (18:05)
[2021-07-17 18:07] VITALS: BP 110/64
[2021-07-17] MEDS ORDERED: PROMETHAZINE INJ 25 MG/ML VIAL (J2550) IV ONE (18:30)
[2021-07-17] MEDS ORDERED: cefTRIAXone SOD 1 GM in D5W MINI-BAG PLUS 50 ML IV ONE (18:30)
[2021-07-17] MEDS ORDERED: PERCOCET 5MG/325MG TAB PO ONE (19:45)
[2021-07-17 20:02] VITALS: BP 127/77
[2021-07-18 02:15] VITALS: BP 103/65
[2021-07-18 08:12] VITALS: BP 101/61
[2021-07-18] MEDS: PERCOCET 5MG/325MG TAB PO PRN ×3 (09:45→19:53)
[2021-07-18 09:54] VITALS: BP 103/62
[2021-07-18] MEDS: LR 1,000 ML IV SCH (13:12)
[2021-07-18 13:14] VITALS: BP 91/53
[2021-07-18 15:49] VITALS: BP 97/58
[2021-07-18] MEDS ORDERED: PERCOCET PO (16:46)
[2021-07-18] MEDS ORDERED: CEPH500C PO (16:46)
[2021-07-18] MEDS ORDERED: cefTRIAXone SOD 1 GM in D5W MINI-BAG PLUS 50 ML IV ONE (18:00)
[2021-07-18 18:47] VITALS: BP 94/50
== END 2021-07-18 20:00 | disposition home or self-care (01) ==
LOC: M LDO 16:55
PROVIDERS: ATTEND Obstetrics & Gynecology
DX: O21.8 Other vomiting complicating pregnancy (principal); O99.332 Smoking (tobacco) complicating pregnancy, second trimester; F17.210 Nicotine dependence, cigarettes, uncomplicated; Z3A.26 26 weeks gestation of pregnancy
CPT/HCPCS: 59025; 76775; 81001; 87088; 87186; 87798; J0696

== ENCOUNTER 2021-09-20 11:53 | Outpatient (CLI) | payer OTHER ==
[~2021-09-20] VITALS: Ht 154.9 cm; Wt 59.6 kg
[~2021-09-20 11:53] MED LIST changes: +CEPH500C PO
[2021-09-20] MEDS ORDERED: HOME MED LIST COMPLETE! XX SCH (12:25)
[2021-09-20 12:33] VITALS: BP 123/74
[2021-09-20 13:09] LABS: AMORPHOUS SEDIMENT SMALL (NEGATIVE); APPEARANCE, URINE CLOUDY (CLEAR); BACTERIA, URINE AUTO NEGATIVE (NEGATIVE); BILIRUBIN, URINE AUTO NEGATIVE (NEGATIVE); BLOOD, URINE BLOOD 2+ (NEGATIVE); COLOR, URINE AMBER (YELLOW); GLUCOSE, URINE (UA) AUTO NEGATIVE (NEGATIVE); KETONE, URINE AUTO 1+ mg/dL (NEGATIVE); LEUKOCYTE ESTERASE, URINE AUTO 3+ (NEGATIVE); NITRITE, URINE AUTO NEGATIVE (NEGATIVE); PROTEIN, URINE AUTO 1+ mg/dL (NEGATIVE); RBC, URINE AUTO 18 /HPF (0-3); SPECIFIC GRAVITY URINE AUTO 1.008 (1.002-1.035); SQUAMOUS EPITHELIAL CELL UR AU 16 /HPF (0-6); WBC, URINE AUTO 167 /HPF (0-3)
[2021-09-20] MEDS ORDERED: ONDANSETRON 4MG/2ML VIAL IV PRN (13:25)
[2021-09-20] MEDS ORDERED: PROMETHAZINE 25MG/ML 1ML VIAL IV ONE (13:55)
[2021-09-20] MEDS ORDERED: BUTORPHANOL 2 MG/ML INJ (J0595) IV ONE (13:55)
[2021-09-20] MEDS: NS 1,000 ML IV SCH ×2 (14:12→22:17)
[2021-09-20] MEDS: cefTRIAXone SOD 1 GM in D5W MINI-BAG PLUS 50 ML IV SCH (14:16)
[2021-09-20 14:25] VITALS: BP 98/53
[2021-09-20 14:42] LABS: HEMATOCRIT 34.4 % (36.0-47.0); HEMOGLOBIN 12.5 g/dl (12.0-15.5); MEAN CORPUSCULAR HEMOGLOBIN 31.8 pg (27.0-33.0); MEAN CORPUSCULAR HGB CONC 36.3 g/dl (32.0-36.5); MEAN CORPUSCULAR VOLUME 87.5 fl (80.0-96.0); PLATELET COUNT, AUTOMATED 239 10^3/uL (150-450); RED BLOOD COUNT 3.93 10^6/uL (4.00-5.40)
[2021-09-20 15:13] VITALS: BP 109/58
[2021-09-20 17:26] VITALS: BP 112/66
[2021-09-20] MEDS ORDERED: MORPHINE 4 MG/ML 1ML VIAL/SYRINGE IV ONE (19:30)
[2021-09-20 20:28] VITALS: BP 105/56
[2021-09-20 22:19] VITALS: BP 128/65
[2021-09-21] MEDS: PERCOCET 5MG/325MG TAB PO PRN ×3 (00:45→10:44)
[2021-09-21 05:36] VITALS: BP 116/75
[2021-09-21] MEDS: NS 1,000 ML IV SCH (05:53)
[2021-09-21 06:13] VITALS: BP 93/53
[2021-09-21 06:27] VITALS: BP 114/57
[2021-09-21 06:39] LABS: HEMATOCRIT 31.5 % (36.0-47.0); HEMOGLOBIN 11.2 g/dl (12.0-15.5); MEAN CORPUSCULAR HEMOGLOBIN 31.5 pg (27.0-33.0); MEAN CORPUSCULAR HGB CONC 35.6 g/dl (32.0-36.5); MEAN CORPUSCULAR VOLUME 88.7 fl (80.0-96.0); PLATELET COUNT, AUTOMATED 236 10^3/uL (150-450); RED BLOOD COUNT 3.55 10^6/uL (4.00-5.40)
[2021-09-21] MEDS: cefTRIAXone SOD 1 GM in D5W MINI-BAG PLUS 50 ML IV SCH (14:38)
[2021-09-21] MEDS ORDERED: ACETAMINOPHEN TAB 650MG DOSE (2X325MG) PO ONE (15:10)
[2021-09-21] MEDS ORDERED: CEPH250T PO (15:46)
== END 2021-09-21 15:45 | disposition home or self-care (01) ==
LOC: M LDO 11:53
PROVIDERS: ATTEND Advanced Practice Midwife
DX: O26.893 Other specified pregnancy related conditions, third trimester (principal); M54.50 Low back pain, unspecified; O23.43 Unspecified infection of urinary tract in pregnancy, third trimester; O23.00 Infections of kidney in pregnancy, unspecified trimester; O99.333 Smoking (tobacco) complicating pregnancy, third trimester; F17.210 Nicotine dependence, cigarettes, uncomplicated; Z3A.35 35 weeks gestation of pregnancy
CPT/HCPCS: 36415; 59025; 81001; 85027; 87081; 87088; 87186; 96365; 96374; 96375; 96376; J0595; J0696; J2270; J2405; J2550

== ENCOUNTER → 2021-09-22 | Outpatient (CLI) | payer OTHER ==
[~2021-09-22] MED LIST changes: +CEPH250T PO
== END ==
LOC: M LAB 09:27
PROVIDERS: ATTEND Obstetrics & Gynecology
DX: Z34.82 Encounter for supervision of other normal pregnancy, second trimester (principal)

== ENCOUNTER 2021-10-10 20:20 | Inpatient (IN) | payer OTHER ==
[~2021-10-10] VITALS: Ht 154.9 cm; Wt 59.2 kg
[2021-10-10] VITALS (12 sets, daily range): BP systolic 105–131; BP diastolic 59–77
[2021-10-10] MEDS ORDERED: LR 1,000 ML IV SCH ×2 (21:00→23:00)
[2021-10-10] MEDS ORDERED: LR 800 ML IV ONE (21:00)
[2021-10-10 21:35] LABS: HEMOGLOBIN 15.4 g/dl (12.0-15.5); MEAN CORPUSCULAR HEMOGLOBIN 31.7 pg (27.0-33.0); MEAN CORPUSCULAR HGB CONC 35.8 g/dl (32.0-36.5); MEAN CORPUSCULAR VOLUME 88.5 fl (80.0-96.0); PLATELET COUNT, AUTOMATED 187 10^3/uL (150-450); RED BLOOD COUNT 4.86 10^6/uL (4.00-5.40); WHITE BLOOD COUNT 13.1 10^3/uL (4.0-10.0)
[2021-10-10] MEDS ORDERED: FENTANYL/ROPIVACAINE/NACL BAG 100 ML EPIDURAL SCH (22:20)
[2021-10-10] MEDS ORDERED: LACTATED RINGER'S 1000 ML IV PRN (22:20)
[2021-10-10] MEDS ORDERED: diphenhydrAMINE 50MG/ML VIAL (J1200) IV PRN (22:20)
[2021-10-10] MEDS ORDERED: ONDANSETRON 4MG/2ML VIAL IV PRN (22:20)
[2021-10-10] MEDS ORDERED: EPIDURAL/PCA KEYS XX PRN (22:20)
[2021-10-10] MEDS ORDERED: NALOXONE INJ 0.4MG/1ML VIAL (J2310 PER 1MG) IV PRN (22:20)
[2021-10-10] MEDS ORDERED: REFRIGERATOR IV KEYS XX PRN (22:20)
[2021-10-10] MEDS ORDERED: EPIDURAL COMMENT XX SCH (22:20)
[2021-10-10] MEDS ORDERED: ePHEDrine SULFATE 25 MG/5 ML(5MG/ML) SYRINGE IV PRN (22:20)
[2021-10-10] MEDS ORDERED: LACTATED RINGER'S 1000 ML IV STA (22:59)
[2021-10-10] MEDS ORDERED: FENTANYL 2MCG/ML ROPIVACAINE 0.2% IN 0.9% NACL 100ML IVBAG As Ordered ONE (23:11)
[2021-10-11] VITALS (12 sets, daily range): BP systolic 98–119; BP diastolic 59–71
[2021-10-11] MEDS ORDERED: OXYTOCIN DRIP 30 UNITS in IV 1 EA IV SCH ×2 (01:00→06:05)
[2021-10-11] MEDS ORDERED: METHYLERGONOVINE MALEATE 0.2 MG TAB PO PRN (06:05)
[2021-10-11] MEDS ORDERED: RHOGAM 300 MCG (1500 IU) INJ (J2790) IM SCH (06:05)
[2021-10-11] MEDS ORDERED: DOCUSATE SODIUM 100MG CAPSULE PO PRN (06:05)
[2021-10-11] MEDS ORDERED: ACETAMINOPHEN 500 MG TAB PO PRN (06:05)
[2021-10-11] MEDS ORDERED: IBUPROFEN 800 MG TAB PO PRN (06:05)
[2021-10-11] MEDS ORDERED: IBUPROFEN 600MG TAB PO PRN (06:05)
[2021-10-11] MEDS ORDERED: MEASLES,MUMPS,RUBELLA VACCINE INJ (MMR-II) (90707) SC SCH (06:05)
[2021-10-11] MEDS ORDERED: ACETAMINOPHEN TAB 650MG DOSE (2X325MG) PO PRN (06:05)
[2021-10-11] MEDS: PRENATAL VITAMINS CHEWABLE TABLET PO SCH (09:00)
[2021-10-12 06:00] VITALS: BP 121/76
[2021-10-12] MEDS: PRENATAL VITAMINS CHEWABLE TABLET PO SCH (10:15)
[2021-10-12] MEDS ORDERED: IBUP80TA PO (11:29)
[2021-10-12] MEDS ORDERED: COLA100C5 PO (11:29)
== END 2021-10-12 11:35 | disposition home or self-care (01) | DRG 560 ==
LOC: M LDO 20:20 → M LDI 21:00 → M OBS 10-11 08:54
PROVIDERS: ADMIT Obstetrics & Gynecology; ATTEND Obstetrics & Gynecology
PROC: 10E0XZZ Delivery of Products of Conception, External Approach (ICD-10-PCS; principal; 2021-10-11)
PROC: 10907ZC Drainage of Amniotic Fluid, Therapeutic from Products of Conception, Via Natural or Artificial Opening (ICD-10-PCS; 2021-10-11)
DX: O69.81X0 Labor and delivery complicated by cord around neck, without compression, not applicable or unspecified (principal); Z3A.38 38 weeks gestation of pregnancy; Z37.0 Single live birth

== ENCOUNTER 2023-09-07 21:51 | Emergency (ER) | payer OTHER, SELFPAY ==
[~2023-09-07] VITALS: Ht 154.9 cm; Wt 52.4 kg
[~2023-09-07 21:51] MED LIST changes: +IBUP80TA PO
[2023-09-07] MEDS ORDERED: GUAN1TAB49 (22:01)
[2023-09-07] MEDS: ACETAMINOPHEN 500 MG TAB PO ONE (23:34)
[2023-09-07] MEDS ORDERED: ONDA4TAB6 PO (23:51)
[2023-09-07] MEDS ORDERED: KETO10TAB PO (23:51)
[2023-09-08 00:04] VITALS: BP 122/80; TEMP 97.8; O2SAT 97
[2023-09-08] MEDS: FLUORESCEIN OPHTH 1MG STRIP OS ONE (00:05)
== END 2023-09-08 00:40 | disposition home or self-care (01) ==
LOC: M ED 21:51
DX: S06.0X0A Concussion without loss of consciousness, initial encounter (principal); Y92.9 Unspecified place or not applicable; Y93.9 Activity, unspecified; Y99.9 Unspecified external cause status; L72.0 Epidermal cyst; F17.210 Nicotine dependence, cigarettes, uncomplicated; Z88.8 Allergy status to other drugs, medicaments and biological substances; Z79.1 Long term (current) use of non-steroidal anti-inflammatories (NSAID); Z79.899 Other long term (current) drug therapy

== ENCOUNTER → 2023-09-12 | Outpatient (CLI) | payer OTHER ==
[~2023-09-12] MED LIST changes: +GUAN1TAB49; +KETO10TAB PO; +ONDA4TAB6 PO
== END ==
LOC: M PLAIMG 09:18
PROVIDERS: ATTEND Physician Assistant
DX: M41.86 Other forms of scoliosis, lumbar region (principal)

== ENCOUNTER → 2023-10-06 | Outpatient (CLI) | payer OTHER | LOC: M PLARAD 08:11 | PROVIDERS: ATTEND Physician Assistant | DX: G93.0 Cerebral cysts (principal) ==

== ENCOUNTER → 2023-10-12 | Outpatient (CLI) | payer OTHER | LOC: M EKG 11:30 | PROVIDERS: ATTEND Nurse Practitioner Psychiatric/Mental Health | DX: F43.20 Adjustment disorder, unspecified (principal) ==